=== PATIENT | female | born 1975 | race Caucasian/White ===

== ENCOUNTER 2017-11-11 14:42 | Observation (INO) ==
[2017-11-11] MEDS ORDERED: Aspirin 325 MG TABLET PO ONE (15:16)
--- NOTE | 2017-11-11 15:27 | Emergency Department Note ---
Disposition Clinical Impression: History of radiofrequency ablation procedure for cardiac arrhythmia, Chest pain , Dizziness, Near syncope, Elevated blood pressure reading Disposition: Admitted As Inpatient Referrals: Debra Florse CNP [Primary Care Provider] - General Adult HPI - General Chief complaint: ED Chest Pain Stated complaint: CP Time Seen by Provider: 11/11/17 15:15 Source: patient Limitations: no limitations - History of Present Illness HPI Narrative: 42-year-old female with a history of trigeminy status post cardiac ablation about [address] Bender at this institution reports the emergency department complaining of chest discomfort which is sometimes sharp and sometimes dull. She does not describe radiation. The patient felt dizzy but did not pass out. She describes a fluttering feeling in her chest associated with the dizziness. There is no history of previous PE DVT or cancer. No history of CAD diabetes hypertension or hyperlipidemia. The patient's son anticoagulated. She has not been coughing or expressing shortness of breath abdominal pain vomiting diarrhea or back pain. The patient has no history of aneurysm. There has been no leg swelling she does not take diuretics there is no history of fever or rash or injury to the chest. The pain is not associated breathing in and out or moving. The patient denies trauma or rash. She feels that maybe her arrhythmia is coming back, she did not fully syncopize or have seizure-like activity there is no history of unilateral arm or leg weakness or numbness slurred speech or facial drooping. The patient does describe significant dizziness, she felt like if she stood up she would pass out during her palpitations/flip-flop feelings in her chest. The patient describes near-syncope. The pain is not associated with exertion. She has not been significantly anxious and does not think anxiety is causing the problem. Pain Scale: 6 - Related Data Home Medications Medication Instructions Recorded Confirmed Amoxicillin [Amoxil] 500 mg PO BID 11/11/17 11/11/17 HYDROcodone/Acet 5/325 mg [[place] 1 tab PO DAILY 11/11/17 11/11/17 5-325 mg] Omeprazole [PriLOSEC] 20 mg PO DAILY 11/11/17 11/11/17 Ranitidine HCl [Zantac] 150 mg PO BID 11/11/17 11/11/17 Tizanidine HCl 4 mg PO Q8H 11/11/17 11/11/17 Allergies Allergy/AdvReac Type Severity Reaction Status Date / Time No Known Allergies Allergy Verified 11/11/17 16:53 All systems ED: reviewed and negative except as stated. Past Medical History - Past Medical History Medical history: Reports: coronary artery disease - Social History Smoking Status: Current every day smoker Smokeless Tobacco Status: No Alcohol use: Reports: unknown, occasionally Drug use: Reports: none Physical Exam - General Limitations: no limitations General appearance: alert, in no apparent distress - Head Head exam: atraumatic, normocephalic, normal inspection - Eye Eye exam: Present: normal appearance, PERRL, EOMI - ENT ENT exam: normal exam, normal oropharynx, mucous membranes moist - Neck Neck exam: Present: normal inspection, full ROM, trachea midline. Absent: tenderness - Chest Chest inspection: Present: normal inspection, symmetric chest wall rise - Respiratory Respiratory exam: Present: normal lung sounds bilaterally. Absent: respiratory distress, wheezes, accessory muscle use, prolonged expiratory phase - Cardiovascular Cardiovascular exam: Present: regular rate, normal rhythm, normal heart sounds - Abdominal Exam Abdominal exam: Present: soft, Non-Tender, normal bowel sounds. Absent: tenderness, distention, guarding, rebound, rigidity - Extremities Exam Extremities exam: Present: normal inspection, full ROM, normal capillary refill. Absent: tenderness, pedal edema, joint swelling, calf tenderness - Expanded Lower Extremity Exam Lower leg exam: Absent: Homans' sign Neurovascular/Tendon exam: Absent: motor deficit, sensory deficit, tendon deficit - Back Exam Back exam: Absent: full ROM, tenderness, CVA tenderness (R), CVA tenderness (L) , vertebral tenderness - Neurological Exam Neurological exam: Present: alert, oriented X3, CN II-XII intact. Absent: motor sensory deficit - Psychiatric Psychiatric exam: Present: normal affect, normal mood - Skin Skin exam: Present: warm, dry, intact, normal color Course Vital Signs Temperature 98.3 F 11/11/17 14:51 Pulse Rate 69 11/11/17 14:51 Respiratory Rate 18 11/11/17 14:51 Blood Pressure 159/107 11/11/17 14:51 O2 Sat by Pulse Oximetry 98 11/11/17 14:51 Temperature 98.3 F 11/11/17 14:51 Pulse Rate 69 11/11/17 14:51 Respiratory Rate 18 11/11/17 14:51 Blood Pressure 159/107 11/11/17 14:51 O2 Sat by Pulse Oximetry 98 11/11/17 14:51 Oxygen Delivery Oxygen Delivery Room Air Medical Decision Making - MDM Narrative Medical decision making narrative: The patient describes recurrent dizziness and chest pain with her heart "flip flopping", she has a known history of cardiac arrhythmia status post ablation, she was managed here by Dr. Oneil she reports, the patient states she had trigeminy in the past. The patient denies any history of diabetes hypertension or heart questioning her previous CAD no history of DVT PE or cancer. I do not believe the patient has acute coronary syndrome based on my history and clinical examination as well as testing results. The patient is low risk for PE. She has however experiencing recurrent chest discomfort which may be secondary to arrhythmia, it is concerning that she is having dizziness and near syncopal events. Based on her previous cardiac arrhythmia, and the prescription of dizziness and near syncope, I thought it would be appropriate to admit the patient to the hospital for further evaluation. I discussed the case with the hospitalist on-call who has accepted the patient to their care. The patient is comfortable with the plan. Aspirin was ordered as a precaution. Blood pressure is somewhat elevated, we will monitor and treat as needed. - Lab Data Lab results reviewed: Yes I reviewed the patient's lab results. Result diagrams: 11/11/17 15:00 11/11/17 15:00 Lab Results 11/11/17 11/11/17 11/11/17 Range/Units 15:00 15:00 15:00 WBC 10.9 (4.3-11.1) K/mcL RBC 4.75 (3.82-4.97) M/mcL Hgb 13.1 (11.5-15.4) g/dL Hct 41.2 (35.3-44.9) % MCV 86.7 (83.0-100.0) fL MCH 27.6 L (28.0-33.3) pg MCHC 31.8 (31.6-35.5) g/dL RDW 15.1 H (11.5-14.5) % Plt Count 544 H (140-400) K/mcL MPV 9.1 L (9.4-12.4) fL Immature Gran % 0.4 (0-4) % Seg Neutrophils % 65.2 % Lymphocytes % 26.1 % Monocytes % 6.1 % Eosinophils % 1.6 % Basophils % 0.6 % Neutrophils # 7.1 (1.6-8.9) K/mcL Lymphocytes # 2.8 (0.6-4.6) K/mcL Monocytes # 0.7 (0.0-1.3) K/mcL Eosinophils # 0.2 (0.0-0.6) K/mcL Basophils # 0.1 (0.0-0.2) K/mcL PT (9.4-12.1) Seconds INR APTT (26.0-36.0) Seconds Sodium 140 (136-145) mEq/L Potassium 3.7 (3.5-5.1) mEq/L Chloride 106 (98-107) mEq/L Carbon Dioxide 27 (23-29) mEq/L BUN 10 (6-20) mg/dL Creatinine 0.65 (0.60-1.20) mg/dL Est GFR ( Amer) > 60 (> 60) Est GFR (Non-Af Amer) > 60 (> 60) BUN/Creatinine Ratio 15 (6-26) Glucose 102 (70-105) mg/dL Calculated Osmolality 289 (280-300) Calcium 9.7 (8.6-10.3) mg/dL Total Bilirubin 0.3 (0.3-1.0) mg/dL Direct Bilirubin 0.0 (0.0-0.2) mg/dL Indirect Bilirubin 0.3 (0.0-1.2) mg/dL AST 16 (13-39) Units/L ALT 16 (7-52) Units/L Alkaline Phosphatase 62 (34-104) Units/L Troponin I < 0.03 (< 0.04) ng/mL C-Reactive Protein < 5 (Less than 10) mg/L Serum Total Protein 7.3 (6.4-8.9) g/dL Albumin 4.6 (3.5-5.7) g/dL Globulin 2.7 (2.4-3.5) g/dL Albumin/Globulin Ratio 1.7 (1.1-2.2) Lipase 13 (11-82) Units/L 11/11/17 Range/Units 15:00 WBC (4.3-11.1) K/mcL RBC (3.82-4.97) M/mcL Hgb (11.5-15.4) g/dL Hct (35.3-44.9) % MCV (83.0-100.0) fL MCH (28.0-33.3) pg MCHC (31.6-35.5) g/dL RDW (11.5-14.5) % Plt Count (140-400) K/mcL MPV (9.4-12.4) fL Immature Gran % (0-4) % Seg Neutrophils % % Lymphocytes % % Monocytes % % Eosinophils % % Basophils % % Neutrophils # (1.6-8.9) K/mcL Lymphocytes # (0.6-4.6) K/mcL Monocytes # (0.0-1.3) K/mcL Eosinophils # (0.0-0.6) K/mcL Basophils # (0.0-0.2) K/mcL PT 10.1 (9.4-12.1) Seconds INR 0.9 APTT 30.9 (26.0-36.0) Seconds Sodium (136-145) mEq/L Potassium (3.5-5.1) mEq/L Chloride (98-107) mEq/L Carbon Dioxide (23-29) mEq/L BUN (6-20) mg/dL Creatinine (0.60-1.20) mg/dL Est GFR ( Amer) (> 60) Est GFR (Non-Af Amer) (> 60) BUN/Creatinine Ratio (6-26) Glucose (70-105) mg/dL Calculated Osmolality (280-300) Calcium (8.6-10.3) mg/dL Total Bilirubin (0.3-1.0) mg/dL Direct Bilirubin (0.0-0.2) mg/dL Indirect Bilirubin (0.0-1.2) mg/dL AST (13-39) Units/L ALT (7-52) Units/L Alkaline Phosphatase (34-104) Units/L Troponin I (< 0.04) ng/mL C-Reactive Protein (Less than 10) mg/L Serum Total Protein (6.4-8.9) g/dL Albumin (3.5-5.7) g/dL Globulin (2.4-3.5) g/dL Albumin/Globulin Ratio (1.1-2.2) Lipase (11-82) Units/L - Radiology Data Radiology results reviewed: Yes I reviewed the patient's radiology results.
[2017-11-11 15:41] LABS: Basophils # 0.1 K/mcL (0.0-0.2); Basophils % 0.6 %; Eosinophils # 0.2 K/mcL (0.0-0.6); Eosinophils % 1.6 %; Hematocrit 41.2 % (35.3-44.9); Hemoglobin 13.1 g/dL (11.5-15.4); Immature Granulocytes % 0.4 % (0-4); Lymphocytes # 2.8 K/mcL (0.6-4.6); Lymphocytes % 26.1 %; Mean Corpuscular HGB Conc 31.8 g/dL (31.6-35.5); Mean Corpuscular Hemoglobin 27.6 pg (28.0-33.3); Mean Corpuscular Volume 86.7 fL (83.0-100.0); Mean Platelet Volume 9.1 fL (9.4-12.4); Monocytes # 0.7 K/mcL (0.0-1.3); Monocytes % 6.1 %; Neutrophils # 7.1 K/mcL (1.6-8.9); Platelet Count 544 K/mcL (140-400); Red Blood Count 4.75 M/mcL (3.82-4.97); Red Cell Distribution Width 15.1 % (11.5-14.5); Segmented Neutrophils % 65.2 %
[2017-11-11 15:58] LABS: Alanine Aminotransferase 16 Units/L (7-52); Albumin 4.6 g/dL (3.5-5.7); Albumin/Globulin Ratio 1.7 (1.1-2.2); Alkaline Phosphatase 62 Units/L (34-104); Aspartate Amino Transferase 16 Units/L (13-39); BUN/Creatinine Ratio 15 (6-26); Bilirubin,Indirect 0.3 mg/dL (0.0-1.2); Bilirubin,Total 0.3 mg/dL (0.3-1.0); Blood Urea Nitrogen 10 mg/dL (6-20); C-Reactive Protein < 5 mg/L (Less than 10); Calcium 9.7 mg/dL (8.6-10.3); Carbon Dioxide 27 mEq/L (23-29); Chloride 106 mEq/L (98-107); Globulin 2.7 g/dL (2.4-3.5); Glucose 102 mg/dL (70-105); Lipase 13 Units/L (11-82); Osmolality,Calculated 289 (280-300); Potassium 3.7 mEq/L (3.5-5.1); Sodium 140 mEq/L (136-145); Total Protein 7.3 g/dL (6.4-8.9); eGFR For Non-African Americans > 60 (> 60)
[2017-11-11 16:26] LABS: INR 0.9; Prothrombin Time 10.1 Seconds (9.4-12.1)
[2017-11-11 16:29] LABS: Activated Partial Thrombo Time 30.9 Seconds (26.0-36.0)
[2017-11-11] MEDS ORDERED: Naloxone 0.4 MG/ML INJ IVP PRN (18:48)
[2017-11-11] MEDS ORDERED: Acetaminophen 325 MG TABLET PO PRN (18:48)
[2017-11-11] MEDS ORDERED: *HR* HYDROcodone/Acet 5/325 mg TABLET PO PRN (18:48)
--- NOTE | 2017-11-11 19:48 | Internal Med History&Physical ---
Date of Encounter: 11/11/17 Time of Encounter: 17:00 Assessment and Plan (1) Chest pain Current visit: Yes Status: Acute Acute chest pain that began today at noon as left-sided pain that was sharp and stabbing followed by dull ache with radiation to central back. Sx accompanied by shortness of breath, diaphoresis, dizzines. History of cardiac ablation 5-6 years ago due to atrial fibrillation. Patient continues to feel occasional fluttering in chest accompanied by dizziness. Currently not on anticoagulation. No aggravating or alleviating factors. Nitro SL PRN. Stair-step pain medication for pain mgmt (IVP morphine 2 mg Q4 PRN for severe pain). Aspirin 325 mg in ED. Continue 81 mg daily. Lipitor 40 mg HS. Initial troponin <0.03. Troponin 2. Echocardiogram ordered. Cardiac diet with patient nothing by mouth at midnight for a.m. stress test. Continuous telemetry. Consider cardiology consult if troponins, echocardiogram, and/or stress test abnormal. Pt. discussed w/Dr. Miller reason plan of care. Patient is high risk for cardiac event due to current symptoms, history of atrial fibrillation requiring cardiac ablation, familial history of MIs in mother and brother, current tobacco abuse and risk factors. Observation. Qualifiers: Chest pain type: other chest pain Qualified Code(s): R07.89 - Other chest pain; R07.8 - Other chest pain (2) Dizziness Current visit: Yes Status: Acute Acute dizziness r/t current CP/SOB. Falls/safety precautions. (3) GERD (gastroesophageal reflux disease) Current visit: Yes Status: Chronic Hx of chronic GERD that pt. reports as poorly controlled. Hold pts. PO meds and administer IVP Protonix 40 mg daily. Zofran IVP 4 mg Q6 PRN for N/V. Qualifiers: Esophagitis presence: esophagitis presence not specified Qualified Code(s) : K21.9 - Gastro-esophageal reflux disease without esophagitis (4) DVT prophylaxis Current visit: Yes Status: Acute Heparin 5000 units SQ every 8 for DVT prophylaxis. Monitor patient for signs of bleeding. Internal Medicine - H&P: HPI Chief complaint: Chest pain Admitted From: Emergency Dept Plans for Post Hospital Care: Home History of present illness: Ms. Chamberlain is a 42 year old female w/PMH of GERD presents from the ED with chief complaint of chest pain that began today at noon and presented as left-sided chest pain with radiation to the central back. Patient describes pain as sharp and stabbing followed by dull ache with no alleviating or aggravating factors. Also reports dizziness, shortness of breath, and diaphoresis with symptoms. Patient reports cardiac ablation 5-6 years ago. Denies history HLD, HTN, DM. Pt. denies recent illness, fever, chills, nausea, vomiting, headache, changes in vision, cough, chest congestion, unusual bleeding, abdominal pain, constipation, diarrhea, numbness, tingling, pre-syncope, or syncope. Past Med Surg Social Fam HX - Past Medical History Source: patient, old records reviewed, obtained from family Medical history: atrial fibrillation (Had ablation 5-6 years ago) Psychiatric history: no psych history - Past Surgical History Surgical History: other (Cardiac ablation) - Social History Smoking Status: Current every day smoker Packs per day: 1 PPWeek Smokeless Tobacco Status: No Alcohol use: unknown, occasionally Drug use: none Current living situation: Home, With Family Activity Level: Independent ambulation Recent Out of Country Travel Within the Last 8 Weeks: No Exposure or Possible Exposure to Illness During Travel: No - Family History Mother Race: Family Member Ethnicity: Non- Living Status: Still Living Hx Family Cardiac Disorders: Yes (HTN, Afib, HTN) Hx Family Reproductive Disorders: Yes (Hysterectomy, Uterine prolapse) Father Race: Family Member Ethnicity: Non- Living Status: Age at : 55 Cause of : Heart defect Hx Family Cardiac Disorders: Yes (Hole in heart) Brother Race: Family Member Ethnicity: Non- Living Status: Age at : 35 Cause of : [place] Hx Family Cardiac Disorders: Yes ([place]) Internal Medicine - H&P: Meds Amoxicillin [Amoxil] 500 mg PO BID 11/11/17 [History] HYDROcodone/Acet 5/325 mg [[place] 5-325 mg] 1 tab PO DAILY 11/11/17 [History] Omeprazole [PriLOSEC] 20 mg PO DAILY 11/11/17 [History] Ranitidine HCl [Zantac] 150 mg PO BID 11/11/17 [History] Tizanidine HCl 4 mg PO Q8H 11/11/17 [History] 3 Allergy/AdvReac Type Severity Reaction Status Date / Time No Known Allergies Allergy Verified 11/11/17 16:53 All Systems PM: A 10-system review of systems was performed and is negative for pertinent findings except as documented above in the HPI. - Constitutional Constitutional: no chills, no fever(s), no night sweats - EENT Eyes: no change in vision, no discharge, no pain, no photophobia Ears: no ear discharge, no ear pain, no tinnitus Nose, mouth and throat: no dysphagia, no nasal discharge, no neck pain, no sore throat - Breasts Breasts: as per HPI - Cardiovascular Cardiovascular ROS IM: as per HPI, chest pain, diaphoresis, dyspnea, dyspnea on exertion, irregular heart rhythm (Ocasional flutter), lightheadedness, no palpitations, no syncope - Respiratory Respiratory: as per HPI, dyspnea, dyspnea on exertion, no cough, no wheezing, no excessive phlegm production - Gastrointestinal Gastrointestinal: no abdominal pain, no diarrhea, no hematemesis, no hematochezia, no melena, no nausea, no vomiting - Genitourinary Genitourinary: no change in urinary stream, no dysuria, no flank pain, no hematuria Menstruation: as per HPI - Musculoskeletal Musculoskeletal ROS IM: no numbness, no tingling - Integumentary Integumentary IM: no rash, no unusual bruising - Neurological Neurological ROS: no confusion, no convulsions, no focal weakness, no numbness, no tingling, no tremor(s) - Psychiatric Psychiatric: as per HPI - Endocrine Endocrine IM: as per HPI - Hematologic/Lymphatic Hematologic/Lymphatic: no easy bruising - Allergic/Immunologic Allergic/Immunologic: as per HPI - Constitutional Vitals: Temp Pulse Resp BP Pulse Ox 98.7 F 74 16 151/98 98 11/11/17 19:13 11/11/17 19:13 11/11/17 19:13 11/11/17 19:13 11/11/17 19:13 General appearance: Present: cooperative, A&O X 3, pleasant, no acute distress, obese, answers questions appropriately - Head Head exam: Present: atraumatic, normocephalic - Eye Eye exam: Present: PERRL, conjuntiva pink, sclera anicteric Pupils: Present: PERRL - ENT ENT exam: Present: normal exam - Neck Neck exam general surgery: Present: normal inspection, supple, trachea midline. Absent: lymphadenopathy - Respiratory Respiratory exam: Present: CTAB. Absent: accessory muscle use, rales, rhonchi, wheezes - Cardiovascular Cardiovascular exam: Present: RRR, +S1, +S2. Absent: diastolic murmur, gallop, rubs, systolic murmur - GI/Abdominal GI/Abdominal exam: Present: normal bowel sounds, soft, no peritoneal signs. Absent: distended, tenderness - Rectal Rectal exam: Present: deferred - Additional comments: exam deferred. - Extremities Exam Extremities exam: Present: pedal edema, warm, radial pulses palpable and symmetrical. Absent: calf tenderness, cyanotic - Back Exam Back exam: Present: normal inspection - Neurological Exam Neurological exam: Present: CN II-XII intact, oriented X3, no focal deficits. Absent: pronater drift, facial droop, speech deficit - Psychiatric Psychiatric exam: Present: normal affect, normal mood - Skin Skin exam: Present: dry, intact Internal Med - H&P Results - Labs CBC & Chem 7: 11/11/17 15:00 11/11/17 15:00 - Diagnostic Studies Chest x-ray Additional comments: Impressions Chest X-Ray 11/11/17 14:57 IMPRESSION: No radiographic evidence of acute cardiopulmonary disease. D/ / Fernie Escalona / Fernie Escalona Interpreting Provider: Fernie Escalona
[2017-11-11] MEDS: Amoxicillin 500 MG CAPSULE PO SCH (20:29)
[2017-11-11] MEDS ORDERED: Ondansetron 4 MG/2 ML VIAL IVP PRN (20:29)
[2017-11-11] MEDS: tiZANidine 4 MG TABLET PO SCH ×2 (20:29→23:38)
[2017-11-11] MEDS: Pantoprazole 40 MG VIAL IVP SCH (20:29)
[2017-11-11] MEDS ORDERED: *HR* OxyCODONE Immed Rel 5 MG TABLET PO PRN (20:47)
[2017-11-11] MEDS ORDERED: Nitroglycerin 0.4 MG TAB.SUBL SL PRN (20:54)
[2017-11-11] MEDS: *HR* Heparin 5,000 UNIT/ML VIAL SQ SCH (21:47)
[2017-11-12 05:17] LABS: Basophils # 0.1 K/mcL (0.0-0.2); Basophils % 0.6 %; Eosinophils # 0.2 K/mcL (0.0-0.6); Eosinophils % 2.2 %; Hematocrit 36.1 % (35.3-44.9); Hemoglobin 11.4 g/dL (11.5-15.4); Immature Granulocytes % 0.2 % (0-4); Lymphocytes # 3.2 K/mcL (0.6-4.6); Lymphocytes % 30.6 %; Mean Corpuscular HGB Conc 31.6 g/dL (31.6-35.5); Mean Corpuscular Hemoglobin 27.5 pg (28.0-33.3); Mean Platelet Volume 9.5 fL (9.4-12.4); Monocytes # 0.7 K/mcL (0.0-1.3); Monocytes % 6.8 %; Neutrophils # 6.2 K/mcL (1.6-8.9); Platelet Count 446 K/mcL (140-400); Red Blood Count 4.15 M/mcL (3.82-4.97); Red Cell Distribution Width 15.2 % (11.5-14.5); Segmented Neutrophils % 59.6 %
[2017-11-12 05:31] LABS: Alanine Aminotransferase 12 Units/L (7-52); Albumin 3.5 g/dL (3.5-5.7); Albumin/Globulin Ratio 1.7 (1.1-2.2); Alkaline Phosphatase 52 Units/L (34-104); Aspartate Amino Transferase 12 Units/L (13-39); BUN/Creatinine Ratio 19 (6-26); Bilirubin,Total 0.2 mg/dL (0.3-1.0); Blood Urea Nitrogen 11 mg/dL (6-20); Calcium 8.4 mg/dL (8.6-10.3); Carbon Dioxide 24 mEq/L (23-29); Chloride 110 mEq/L (98-107); Chol/HDL Ratio 2.5 (0-4.9); Cholesterol 112 mg/dL (< 200); Globulin 2.1 g/dL (2.4-3.5); Glucose 95 mg/dL (70-105); HDL Cholesterol 45 mg/dL (40-59); LDL Cholesterol,Calculated 49 mg/dL (0-99); Osmolality,Calculated 289 (280-300); Potassium 3.7 mEq/L (3.5-5.1); Sodium 140 mEq/L (136-145); Total Protein 5.6 g/dL (6.4-8.9); Triglycerides 92 mg/dL (< 150); eGFR For Non-African Americans > 60 (> 60)
[2017-11-12] MEDS: *HR* Heparin 5,000 UNIT/ML VIAL SQ SCH (05:34)
[2017-11-12 07:03] VITALS: BP 138/87
[2017-11-12] MEDS ORDERED: Aspirin Enteric Coated 81 MG Tablet PO SCH (09:00)
[2017-11-12 12:00] LABS: Hemoglobin A1C 5.8 %
[2017-11-12] MEDS: Amoxicillin 500 MG CAPSULE PO SCH (12:00)
[2017-11-12] MEDS: tiZANidine 4 MG TABLET PO SCH (12:00)
[2017-11-12] MEDS: Pantoprazole 40 MG VIAL IVP SCH (12:01)
--- NOTE | 2017-11-12 14:00 | Discharge Summary ---
- NOTES TO OUTPATIENT PROVIDER Notes to Outpatient Provider: Patient will need to reestablish with cardiology. last visit was approximately 5 years ago with [employer] after ablation. Orders not resulted at time of discharge: Pending orders 11/12/17 05:57 NM deon perf SPECT multi [NM] Routine 11/13/17 04:00 Complete Blood Count [HEME] AM 0400 Comprehensive Metabolic Panel AM 0400 11/14/17 04:00 Complete Blood Count [HEME] AM 0400 Comprehensive Metabolic Panel AM 0400 Date of Encounter: 11/12/17 Time of Encounter: 11:50 - Discharge Diagnosis (1) Chest pain Priority: Primary Status: Chronic Comments: Patient reports chest pain onset approximately one year ago, worse yesterday. Describes as sharp and stabbing, since become a dull ache with radiation to her mid back. She reported shortness of breath, diaphoresis, associated dizziness. Patient reports cardiac ablation approximately 5 years ago due to trigeminy. She reports occasional fluttering in her chest accompanied by dizziness. Patient is hoping to reestablish with cardiology for follow-up of the symptoms. Chest x-ray is negative for acute disease. Stress test was negative for for ischemia or infarct with a gated EF of 75%. Troponins were negative, vital signs have remained stable. Echocardiogram showed preserved EF, moderate LV DD and mild TR. Physical exam is unremarkable, patient denies chest pain or pressure. S1 and S2 is heard, regular rate and rhythm, no gallops, clicks, murmurs. Penis is not reproducible with palpation, movement, deep inspiration. The chest pain and dizziness could be secondary to hypertension. Diastolic blood pressure was 107 on admission, decreased to 95. Patient has had no normal blood pressure readings since last night. We will continue to monitor prior to discharge. Qualifiers: Chest pain type: other chest pain Qualified Code(s): R07.89 - Other chest pain; R07.8 - Other chest pain (2) Dizziness Priority: Secondary Status: Acute Comments: Patient denies dizziness currently. Testing as above. Patient reports dizziness associated with chest pain. Patient could be having another episode of dysrhythmia causing dyspnea, shortness breath or chest pain. Patient has a follow-up appointment with cardiology on December 07. Recommended patient return for evaluation if symptoms return. Dizziness could be secondary to hypertension. (3) Elevated blood pressure reading Priority: Secondary Status: Acute Comments: Patient was hypertensive initially, blood pressure has since decreased to within normal limits. (4) History of radiofrequency ablation procedure for cardiac arrhythmia Priority: Secondary Status: Acute Comments: Per patient history. Patient reports that she had trigeminy, requiring an ablation approximately 5 years ago. 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 Primary nurse has made an appointment for December 07. (5) GERD (gastroesophageal reflux disease) Priority: Secondary Status: Chronic Comments: Chronic. Continue home medication. Patient denies symptoms currently. Qualifiers: Esophagitis presence: esophagitis presence not specified Qualified Code(s) : K21.9 - Gastro-esophageal reflux disease without esophagitis (6) DVT prophylaxis Priority: Secondary Status: Acute Comments: Heparin subcutaneous 3 times daily. Patient is ambulatory. Hospital course: Ms. Chamberlain is a 42 year old female Discharge discussed with: family - Time Spent with Patient Total time spent providing and/or coordinating discharge services: - Discharge Medications Home Medications: Amoxicillin [Amoxil] 500 mg PO BID 11/11/17 [History] HYDROcodone/Acet 5/325 mg [[place] 5-325 mg] 1 tab PO DAILY 11/11/17 [History] Omeprazole [PriLOSEC] 20 mg PO DAILY 11/11/17 [History] Ranitidine HCl [Zantac] 150 mg PO BID 11/11/17 [History] Tizanidine HCl 4 mg PO Q8H 11/11/17 [History] Calcium Carbonate [Tums] 1,000 mg PO TID tab.chew 11/12/17 [Rx] Allergies/Adverse Reactions: 3 Allergy/AdvReac Type Severity Reaction Status Date / Time No Known Allergies Allergy Verified 11/11/17 16:53 Date of admission: 11/11/17 17:33 Primary care physician: Debra Flores CNP Consults: 11/11/17 18:51 Consult to Supervisor Pre Wave [CONS] Routine Reason for SW Consult: Please assess patient for possible home needs for post -discharge planning. Discharging clinician: Ana Lilia Reinoso Anticipated date of discharge: 11/12/17 - Constitutional Vitals: Temp Pulse Resp BP Pulse Ox 98.3 F 72 16 138/87 98 11/12/17 07:02 11/12/17 07:02 11/12/17 07:02 11/12/17 07:02 11/12/17 07:02 General appearance: Present: cooperative, A&O X 3, pleasant, no acute distress, obese, answers questions appropriately - Head Head exam: Present: atraumatic, normal inspection, normocephalic - Eye Eye exam: Present: conjuntiva pink, sclera anicteric - Neck Neck exam general surgery: Present: supple, trachea midline. Absent: lymphadenopathy, tenderness - Respiratory Respiratory exam: Present: CTAB. Absent: accessory muscle use, chest wall tenderness, rales, rhonchi, wheezes - Cardiovascular Cardiovascular exam: Present: RRR, +S1, +S2. Absent: diastolic murmur, gallop, rubs, systolic murmur - GI/Abdominal GI/Abdominal exam: Present: normal bowel sounds, soft, no peritoneal signs. Absent: distended, tenderness - Extremities Exam Extremities exam: Present: normal capillary refill, normal inspection, warm, radial pulses palpable and symmetrical. Absent: calf tenderness, cyanotic, pedal edema, tenderness - Neurological Exam Neurological exam: Present: alert, oriented X3, no focal deficits. Absent: facial droop, speech deficit - Skin Skin exam: Present: dry, intact, normal color, warm. Absent: rash - Patient Status Disposition: Home, Self-Care Condition: Good Functional capacity at discharge: independent ambulation Overall status at discharge: patient is back to baseline - Discharge Instructions Follow Up With: Debra Flores CNP [Primary Care Provider] - Vnana Del Valle [Partnered Physician] - 12/07/17 1:30 pm Forms: ED Satisfaction Letter Additional Instructions: Your primary nurse has made an appointment with cardiology from December 07. Please follow up with cardiology to reestablish the office and further evaluation of your chest pain. I suspect that your worsening chest pain is related to hypertension. Blood pressure has returned to baseline, no need for medication at this time, but she should discuss with primary care. I recommend that you check your blood pressure daily and attempt to correlate any chest pain or dizziness with your blood pressure readings that might be elevated. Please follow with your primary care provider in the next 7-10 days. Resume normal home medications. Resume your normal diet and activities as tolerated. Please return to the emergency department as needed for any other problems or concerns, or if your symptoms return or worsen. - Diet and Activity Activity: increase activity as tolerated Diet: advance to your usual diet
--- NOTE | 2017-11-12 20:15 | Electrocardiograph Report ---
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
--- NOTE | 2017-11-12 20:15 | Electrocardiograph Report ---
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
--- NOTE | 2017-11-12 20:17 | Electrocardiograph Report ---
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
== END 2017-11-12 16:50 | disposition home or self-care (01) ==
LOC: 3BNU 14:42 → EMEROO 14:42 → 3BNU 18:15
PROVIDERS: ADMIT Internal Medicine; ATTEND Registered Nurse